=== PATIENT | male | born 1970 | race Caucasian/White ===

== ENCOUNTER → 2024-01-22 | Day surgery (SDC) | payer OTHER ==
[~2024-01-22] MED LIST: Lidocaine PF 2% (20 MG/ML) 2 ML VIAL ONE
== END ==
LOC: MSO 11-06 10:40
DX: Z12.11 Encounter for screening for malignant neoplasm of colon (principal); K57.30 Diverticulosis of large intestine without perforation or abscess without bleeding
CPT/HCPCS: 00812; J2704; J7120